=== PATIENT | female | born 1965 | race American Indian/Alaskan Native ===

== ENCOUNTER 2022-07-13 10:41 | Emergency (ER) | payer SELFPAY ==
[2022-07-13 11:16] VITALS: BP 183/86
[2022-07-13 12:17] LABS: Hematocrit 38.8 % (30.3-42.9); Hemoglobin 13.2 gm/dl (10.1-14.3); Mean Corpuscular HGB Conc 34 % (30-34); Mean Corpuscular Volume 84 fl (79-97); Platelet Count 377 K/mm3 (140-440); Red Blood Count 4.65 M/mm3 (3.65-5.03); Red Cell Distribution Width 15.3 % (13.2-15.2)
[2022-07-13 12:20] LABS: INR 0.9 (0.87-1.13)
[2022-07-13 12:21] LABS: Partial Thromboplastin Time 33.6 Sec. (24.2-36.6)
[2022-07-13 12:32] LABS: Alanine Aminotransferase 8 units/L (7-56); Albumin 4.6 g/dL (3.9-5); BUN/Creatinine Ratio 13; Blood Urea Nitrogen 12 mg/dL (7-17); Calcium 9.6 mg/dL (8.4-10.2); Hemolysis Index 3
== END 2022-07-13 13:00 | disposition left against medical advice (07) ==
LOC: ED 10:41
DX: R10.9 Unspecified abdominal pain (principal); Z53.21 Procedure and treatment not carried out due to patient leaving prior to being seen by health care provider
CPT/HCPCS: 36415; 80053; 83690; 85027; 85610; 85730